=== PATIENT | female | born 1955 | race African-American/Black ===

== ENCOUNTER 2017-06-06 13:30 | Emergency (ER) | payer MEDICAID ==
[~2017-06-06] VITALS: Ht 182.9 cm; Wt 91.0 kg
[~2017-06-06 13:30] MED LIST: ATROV IH; HYDR25TA; NAPR-679 PO; Q PAP; proair hfa
[2017-06-06 17:32] VITALS: BP 135/75
== END 2017-06-06 18:48 | disposition home or self-care (01) ==
LOC: ER 15:37
DX: N61.1 Abscess of the breast and nipple (principal); J44.0 Chronic obstructive pulmonary disease with (acute) lower respiratory infection; I10 Essential (primary) hypertension; F17.200 Nicotine dependence, unspecified, uncomplicated; Z88.6 Allergy status to analgesic agent; Z88.8 Allergy status to other drugs, medicaments and biological substances
CPT/HCPCS: 99283